=== PATIENT | male | born 1925 | race Caucasian/White ===

== ENCOUNTER 2017-02-19 10:19 | Emergency (ER) | payer MEDICARE ==
[2017-02-19 12:09] LABS: PTT 33.6 SEC (22.9-36.1)
[2017-02-19 12:10] LABS: D-Dimer Test 0.83 *mcg/mL (0.27-0.43); INR-International Normal Ratio 1.1; Prothrombin Time 14.1 SEC (12.0-14.7)
[2017-02-19 13:02] LABS: #Basophils 0.1 thou/uL (0.0-0.2); #Eosinphils 0.1 thou/uL (0.0-0.7); #Lymphocytes 1.7 thou/uL (1.20-3.40); #Monocytes 0.5 thou/uL (0.11-0.59); #Neutrophils 2.8 thou/uL (1.40-6.50); %Basophils 1.6 % (0.0-1.0); %Eosinophils 1.6 % (0.0-10.0); %Lymphocytes 32.6 % (21.0-51.0); %Monocytes 9.3 % (0.0-10.0); %Neutrophils 54.9 % (42.0-75.0); Hemoglobin 14.1 g/dL (14.0-18.0); Mean Corpuscular Hemoglobin 30.1 pg (27.0-31.0); Mean Corpuscular Volume 91.3 fl (80.0-94.0); Mean Platelet Volume 8.5 fL (7.4-10.4); Platelet Count 162 thou/uL (130-400); RBC Distribution Width 11.7 % (11.5-14.5); Red Blood Cell (RBC) Count 4.68 mill/uL (4.70-6.10); White Blood Cell (WBC) Count 5.2 thou/uL (4.8-10.8)
--- NOTE | 2017-02-19 13:10 | RAD ---
AP PELVIS: History: Left hip pain. FINDINGS/IMPRESSION: There is a subcapital fracture involving the left femoral neck. POS: [facility]
--- NOTE | 2017-02-19 13:11 | RAD ---
LEFT HIP TWO VIEWS: History: Fall. Left hip injury and pain. FINDINGS/IMPRESSION: There is a subcapital fracture of the left femoral neck with associated foreshortening. POS: [facility]
--- NOTE | 2017-02-19 13:14 | RAD ---
PORTABLE CHEST ONE VIEW: Date: 02-19-17 Time: 12:45 p.m. History: Fall, chest pain. FINDINGS/IMPRESSION: Comparison is made with exam of 12-03-13. There are changes of median sternotomy. The heart is enlarged. Lungs are well expanded without conflu ent areas of consolidation, pneumothorax, kaity pleural edema or large effusions. There are degenerat shanna changes in the spine. POS: [facility]
--- NOTE | 2017-02-19 18:55 | RAD ---
LEFT KNEE TWO VIEWS: History: Left knee pain. FINDINGS/IMPRESSION: There are degenerative changes in the left knee manifested by osteophyte formation and joint space na rrowing. No fracture or dislocation or bony destruction is seen. POS: [facility]
== END 2017-02-19 13:40 | disposition short-term general hospital (02) ==
LOC: NAV ERS 10:19
DX: S72.002A Fracture of unspecified part of neck of left femur, initial encounter for closed fracture (principal); I10 Essential (primary) hypertension; I25.10 Atherosclerotic heart disease of native coronary artery without angina pectoris; Z79.899 Other long term (current) drug therapy; W18.30XA Fall on same level, unspecified, initial encounter; Y93.01 Activity, walking, marching and hiking
CPT/HCPCS: 71010; 72170; 85025; 85379; 85610; 85730; 96374; J2270